=== PATIENT | male | born 1965 | race Caucasian/White ===

== ENCOUNTER 2023-03-14 01:33 | Day surgery (SDC) | payer OTHER, SELFPAY ==
[2023-03-06 15:03] VITALS: BMI 27.3
[2023-03-14 06:12] VITALS: BP 134/74; PULSE 81; RESP 18; TEMP 36.3; O2SAT 100; BMI 26.8
[2023-03-14] MEDS: LACTATED RINGERS 1,000 ML 150 ML IV CONT (06:29)
--- NOTE | 2023-03-14 07:24 | PM.HPGS ---
History of Present Illness History of Present Illness Consent: Risks, benefits, and alternatives have been discussed and questions answered. Patient agrees to proceed with procedure. Chief complaint: neoplasm screening Narrative: Frank Vivas Jr. is a 57 year old male Presents for screening colonoscopy. Patient's current weight appetite and bowel movements are normal. Patient denies abdominal pain. He has had no bleeding. Family history is noncontributory. Review of Systems Review of Systems: Review of systems noncontributory. [facility] Family History Family History (Updated 09/21/18 @ 09:42 by DOCTOR UNKNOWN) Father Patient's father is in good health Social History Social History Smoking status: Never smoker Alcohol intake: current Drinks per week: 2 Alcohol use details: DRINKS Substance use: never Substance use type: does not use Living arrangements: with family Spiritual care concerns: No Meds Home Medications and Allergies Home Medications Medication Instructions Recorded Confirmed Type alprazolam 0.5 mg tablet 0.5 mg PO BID PRN Anxiety 03/06/23 03/14/23 History atorvastatin 20 mg tablet 20 mg PO DAILY 03/06/23 03/14/23 History Allergies Allergy/AdvReac Type Severity Reaction Status Date / Time No Known Allergies Allergy Mild Verified 03/14/23 06:18 Vital Signs Vital Signs - 24 hr 03/14/23 06:12 Temperature 97.3 F L Pulse Rate 81 Respiratory Rate 18 Blood Pressure 134/74 Pulse Oximetry 100 Oxygen Delivery Room Air Exam Narrative: Physical exam reveals patient to be alert. Vital signs stable. HEENT exam is unremarkable. Patient is anicteric. Lungs are clear to auscultation and percussion. Heart is without murmur or extra sounds. Abdomen bowel sounds are present soft nontender with no organomegaly. Digital external rectal exam is normal. Assessment and Plan Assessment and plan (1) Encounter for screening colonoscopy: Code(s): Z12.11 - Encounter for screening for malignant neoplasm of colon Status: Acute Assessment and Plan: Patient presents for screening colonoscopy. He appears to be at average risk for colon polyps. Further recommendations may be given after endoscopy.
--- NOTE | 2023-03-14 07:27 | WPDANESEPPF ---
Anes - Initial Pre Proc Eval Procedure: Operation Date: 03/14/23 07:30 Proposed Procedures p Screening Colonoscopy - Blaine Javier MD Date/Time: 03/14/23 07:27 Surgeon: Blaine Javier MD Pre Op Diagnosis: neoplasm screening Patient Data Age: 57 Gender: M Height: 1.75 m Weight: 82.3 kg Last Vital Signs Temp 36.3 C L 03/14/23 06:12 Pulse 81 03/14/23 06:12 Resp 18 03/14/23 06:12 BP 134/74 03/14/23 06:12 Pulse Ox 100 03/14/23 06:12 O2 Del Method Room Air 03/14/23 06:12 Allergies Allergy/AdvReac Type Severity Reaction Status Date / Time No Known Allergies Allergy Mild Verified 03/14/23 06:18 Home Medications Medication Instructions Recorded Confirmed Type alprazolam 0.5 mg tablet 0.5 mg PO BID PRN Anxiety 03/06/23 03/14/23 History atorvastatin 20 mg tablet 20 mg PO DAILY 03/06/23 03/14/23 History Patient hx anesthesia problems: none Family hx anesthesia problems: none Results Review: All pre-operative results and documents have been reviewed as part of the pre-operative evaluation. [facility] Past Medical History Medical History (Updated 03/14/23 @ 07:28 by Javon Skinner MD) Hyperlipidemia ANG (obstructive sleep apnea) Family History Family History (Updated 09/21/18 @ 09:42 by DOCTOR UNKNOWN) Father Patient's father is in good health Social History Social History Smoking status: Never smoker Alcohol intake: current Drinks per week: 2 Alcohol use details: DRINKS Substance use: never Substance use type: does not use Living arrangements: with family Spiritual care concerns: No Anes - Eval Final PreProcedure Day of Procedure 03/14/23 07:27 Patient weight: overweight Heart: regular rate and rhythm Lungs: clear to auscultation and normal air movement Airway: Mallampati scale class II Neurological: alert and oriented Last oral intake: >/= 8 hours ASA classification: II Emergent: no Anesthetic plan: proceed Anesthesia type and monitoring: general GIVS Results Review: All pre-operative results and documents have been reviewed as part of the pre-operative evaluation. Informed Consent: The patient's anesthetic plan and its attendant risks and benefits were discussed with the patient/family/POA. Questions were solicited and answers provided to the satisfaction of the patient/family/POA.
[2023-03-14 07:53] VITALS: BP 114/74; PULSE 77; RESP 23; O2SAT 98
[2023-03-14 08:03] VITALS: BP 116/74; PULSE 68; RESP 27; O2SAT 98
[2023-03-14 08:13] VITALS: BP 123/86; PULSE 63; RESP 19; O2SAT 99
== END 2023-03-14 08:26 | disposition home or self-care (01) ==
PROVIDERS: PCP Internal Medicine; Visit Provider Internal Medicine Gastroenterology
PROC: 0DJD8ZZ Inspection of Lower Intestinal Tract, Via Natural or Artificial Opening Endoscopic (ICD-10-PCS; CPT 45378; principal; 2023-03-14 07:30)
DX: Z12.11 Encounter for screening for malignant neoplasm of colon (principal); K64.8 Other hemorrhoids; E78.5 Hyperlipidemia, unspecified; G47.33 Obstructive sleep apnea (adult) (pediatric)
CPT/HCPCS: 45378; J2704; J7120